=== PATIENT | male | born 1995 | race Two or more races ===

== ENCOUNTER 2018-09-25 08:59 | Emergency (ER) | payer MEDICAID ==
--- NOTE | 2018-09-25 09:01 | EDPHY ---
H & P Time Seen by Provider: 09/25/18 09:01 HPI/ROS: CHIEF COMPLAINT: Unconscious HISTORY OF PRESENT ILLNESS: 23-year-old man brought in by EMS. Apparently he was given Street heroin this morning and went unconscious, was given 2 mg intranasal Narcan at 8:30 a.m. And on arrival is awake. He had a pre-hospital glucose that was not low. He denies headache or weakness or numbness in extremities or injury or trauma. No trouble breathing. REVIEW OF SYSTEMS: Eye: no change in vision ENT: no sore throat Cardiac: no chest pain or syncope Pulmonary: no cough or SOB Abdomen: no vomiting, diarrhea, abdominal pain Musculoskeletal: no back pain Skin: no rash Neuro: no headache Constitutional: no fever : no urinary symptoms A comprehensive 10 point review of systems is otherwise negative aside from elements mentioned in the history of present illness. PAST MEDICAL HISTORY: Negative Social history: Tobacco smoker General Appearance: Alert and conversant, cooperative. Eyes: No scleral icterus. ENT, Mouth: No tongue laceration or abrasion Respiratory: Slight expiratory wheezing but breath sounds are symmetric. Speaks in full sentences. Cardiovascular: Regular rate and rhythm. Gastrointestinal: Abdomen is soft and non tender. Neurological: Alert, face symmetric, normal motor and sensory in extremities. Skin: Warm and dry, no rashes. Musculoskeletal: No peripheral edema. Psychiatric: Not agitated. Emergency Department course/MDM: Successful resuscitation of opioid overdose with Narcan in the field. Plan for serial exam. 1248: 97% on nasal cannula, normal mental status. He keeps dozing off and getting hypoxemic. Plan for continued serial examinations. Think it is unlikely that he had stroke or seizure, hypoglycemia, alcohol intoxication, other metabolic abnormality. 1345: Oxygen saturation 93% on room air. Lungs clear without rales or wheezing at this time. Does not clinically have evidence of pulmonary edema. Stable for discharge at this time, was seen by case management in the emergency department. Constitutional: Initial Vital Signs Temperature (C) 36.5 C 09/25/18 09:05 Heart Rate 92 09/25/18 09:05 Respiratory Rate 16 09/25/18 09:05 Blood Pressure 126/73 H 09/25/18 09:05 O2 Sat (%) 90 L 09/25/18 09:05 O2 Delivery Mode Room Air O2 (L/minute) 2 Departure - Departure Disposition: Home, Routine, Self-Care Clinical Impression: Opiate or related narcotic overdose Qualifiers: Encounter type: initial encounter Injury intent: accidental or unintentional Qualified Code(s): T40.601A - Poisoning by unspecified narcotics, accidental ( unintentional), initial encounter Condition: Good Instructions: Narcotic Safety (ED), Narcotic Use Disorder (ED) Additional Instructions: Please follow up with Hoang Falk ([facility]) and Medication Assisted Therapy. Utilize harm reduction therapy and [facility] for needle exchange and Naloxone. STOP USING HEROIN Referrals: [facility],. [Clinic] - As per Instructions
[2018-09-25 13:49] VITALS: BP 118/75
== END 2018-09-25 14:16 | disposition home or self-care (01) ==
DX: R40.20 Unspecified coma (principal); T40.2X1A Poisoning by other opioids, accidental (unintentional), initial encounter